=== PATIENT | female | born 1990 | race Two or more races ===

== ENCOUNTER 2018-06-05 14:15 | Emergency (ER) | payer MEDICARE, MEDICAID ==
[~2018-06-05] VITALS: Ht 149.9 cm; Wt 46.7 kg
[2018-06-05] MEDS ORDERED: azithromycin 250mg tablet PO ONE (17:15)
[2018-06-05] MEDS ORDERED: CefTRIAXone 250MG inj IM ONE (17:15)
[2018-06-05] MEDS ORDERED: CefTRIAXone 250MG IM Kit w/LIDOcaine IM ONE (17:20)
[2018-06-05 17:29] VITALS: BP 106/68
== END 2018-06-05 17:30 | disposition home or self-care (01) ==
LOC: ER 14:16 → EEVIPCON 14:16 → ER 17:30
DX: T76.21XA Adult sexual abuse, suspected, initial encounter (principal)
CPT/HCPCS: 96372; 99283; J0696